=== PATIENT | male | born 1980 | race Caucasian/White ===

== ENCOUNTER 2020-06-13 21:50 | Emergency (ER) | payer SELFPAY ==
[~2020-06-13] VITALS: Ht 175.3 cm; Wt 98.0 kg
[2020-06-13] MEDS ORDERED: IBUPROFEN 600MG TABLET PO STA (22:32)
[2020-06-13 22:55] LABS: BASOPHILS % 0.5 % (0.0-2.0); EOSINOPHILS % 1.2 % (0.0-5.0); HEMATOCRIT. 41.2 % (42.0-52.0); HEMOGLOBIN. 14.3 g/dL (14.0-18.0); LYMPHOCYTES % 34.9 % (20.0-50.0); MEAN CORPUSCULAR HEMOGLOBIN 28.5 pg (28.0-32.0); MEAN CORPUSCULAR VOLUME 82.4 fL (80.0-94.0); MEAN PLATELET VOLUME 8.7 fl (7.4-10.4); MONOCYTES % 6.8 % (2.0-8.0); NEUTROPHILS % 56.6 % (40.0-76.0); PLATELET 231 x1000/uL (130-400); RED CELL DISTRIBUTION WIDTH 13.4 % (11.6-14.6)
[2020-06-13 22:59] LABS: CHLORIDE 106 mEq/L (98-107)
[2020-06-13 23:40] VITALS: BP 135/80
== END 2020-06-13 23:46 | disposition home or self-care (01) ==
LOC: ER 21:50
DX: R07.89 Other chest pain (principal)
CPT/HCPCS: 36415; 71045; 80053; 84484; 85025; 93005; 99285